=== PATIENT | female | born 1965 | race Caucasian/White ===

== ENCOUNTER → 2016-11-02 15:10 | Outpatient (CLI) | payer OTHER | END | disposition home or self-care (01) | LOC: D.MAMMO 10-03 11:45 | DX: Z12.31 Encounter for screening mammogram for malignant neoplasm of breast (principal) ==

== ENCOUNTER → 2017-08-14 13:33 | Outpatient (CLI) | payer OTHER | END | disposition home or self-care (01) | LOC: D.CT 13:33 | DX: R93.8 Abnormal findings on diagnostic imaging of other specified body structures (principal) ==

== ENCOUNTER → 2017-11-21 16:02 | Outpatient (CLI) | payer OTHER | END | disposition home or self-care (01) | LOC: D.MAMMO 10-09 11:45 | DX: Z12.31 Encounter for screening mammogram for malignant neoplasm of breast (principal) ==

== ENCOUNTER → 2017-11-23 13:45 | Outpatient (CLI) | payer OTHER | END | disposition home or self-care (01) | LOC: D.CT 13:45 | DX: R10.9 Unspecified abdominal pain (principal) ==

== ENCOUNTER → 2018-04-11 11:04 | Outpatient (CLI) | payer OTHER | END | disposition home or self-care (01) | LOC: D.MRI 11:00 | DX: M67.442 Ganglion, left hand (principal) ==

== ENCOUNTER 2018-04-27 10:56 | Day surgery (SDC) | payer OTHER ==
[~2018-04-27] VITALS: Ht 162.6 cm; Wt 74.8 kg
[2018-04-27 12:21] LABS: HEMATOCRIT 45.1 % (36.0-48.0); HEMOGLOBIN 14.8 g/dL (12-16); MCHC 32.8 g/dL (31.0-37.0); MCV 94.4 fL (80.0-100.0); MEAN PLATELET VOLUME 9.7 fL (7.4-10.4); RBC 4.78 10x6/uL (4.00-5.40); RDW 13.4 % (11.5-14.5); WBC 9.1 10x3/uL (4.8-10.8)
[2018-04-27 12:33] LABS: HCG SERUM NEGATIVE (NEGATIVE)
[2018-04-27 14:33] VITALS: BP 138/76; Ht 162.6 cm; Wt 74.8 kg
[2018-04-27] MEDS ORDERED: LISINOPRIL10 MG PO (14:46)
[2018-04-27] MEDS ORDERED: VITAMIN D250000 UNIT PO (14:47)
[2018-04-27] MEDS ORDERED: DURICEF500 MG PO (17:10)
--- NOTE | 2018-04-27 17:10 | NUR ---
REC'D FROM SURGERY. AWAKE. FAMILY AT BEDSIDE. DR BARRERA TALKED WITH PT AND FAMILY. HAND NUMB FROM LOCAL INJECTION.
[2018-04-27] MEDS ORDERED: ZOFRAN ODT4 MG/UDTAB PO (17:11)
[2018-04-27] MEDS ORDERED: ULTRAM50 MG PO (17:11)
--- NOTE | 2018-04-27 17:40 | NUR ---
SELAM ROJAS SERVED TO PT. ASKING WHEN SHE CAN GO HOME.
--- NOTE | 2018-04-27 18:00 | NUR ---
TOLERATED DIET. IV DC'D WITH CATHETER INTACT. WRITTEN AND VERBAL DC INST. GIVEN TO PT ALONG WITH RX. VERBALIZED UNDERSTANDING.
--- NOTE | 2018-04-27 18:10 | NUR ---
DC'D HOME WITH FAMILY VIA PRIVATE VEHICLE. TAKEN TO VEHICLE VIA WC. STABLE AT TIME OF DC.
--- NOTE | 2018-04-30 08:29 | OP ---
PATIENT NAME: SADIE KEENE MEDICAL RECORD: [id number] :63 LOCATION:[facility] ADMISSION DATE: SURGEON: POLLO BARRERA DO DATE OF OPERATION: 04/27/2018 PROCEDURE PERFORMED: Left middle finger ganglion excision and A1 nilay release. PREOPERATIVE DIAGNOSIS: Ganglion of the left middle finger flexor tendon sheath at the A1 nilay. POSTOPERATIVE DIAGNOSIS: Ganglion of the left middle finger flexor tendon sheath at the A1 nilay. INDICATION: Ms. Keene is a 52-year-old female who has had a small lump on the ulnar side of her middle finger at the MCP joint on the palmar side. The patient was tired of dealing with this. It hurt when she gripped something and she was tired of dealing with the pain. Imaging was done just to ensure there was indeed a cyst. I anticipated it being a ganglion cyst and that is what the MRI showed. It was coming off of the flexor tendon sheath right at the A1 nilay of the middle finger. I informed her we will excise the ganglion mass to open the sheath a little bit, and due to the fact it was right at the A1 nilay, to release it so it does not come back. She was okay with that. She was aware of risks and benefits including damage to nerves and vessels in the area, continued numbness, and recurrence of the ganglion. She signed the consent. SURGEON: Pollo Barrera DO DESCRIPTION OF PROCEDURE: The patient was taken to the operative suite and laid in the supine position. The left upper extremity was prepped and draped in sterile fashion. The patient was given TIVA. She was given a gram of Ancef preoperatively. Prior to the prepping and draping, the area of the cyst on the left middle finger palm was injected with 1% lidocaine, approximately 10 mL around the site. This was set up and then the left upper extremity was prepped and draped. Once this was done, time-out was performed and everyone was in agreement with correct side, site, and patient. The incision then began just over the cyst at the MCP joint of the left middle finger, just ulnar to it. A careful dissection was made down to the cyst itself and the cyst was ruptured. It was seen to come right off of the A1 nilay and the A1 nilay was released with a #15 blade scalpel under direct loupe visualization. The Dave retractors were used to retract everything out of the way, ensuring that the only thing released was the A1 nilay. Some of the ganglion material was removed from the wound as well and the tendon. The finger was flexed to ensure that the tendon glided smoothly and it did. The wound was then irrigated and closed with 4-0 nylon in a horizontal mattress fashion. Adaptic, 4 x 4's, Kerlix, and Coban were lightly wrapped on the wound. The patient was then taken to the outpatient for recovery due to the fact she was not put under anesthesia. COMPLICATIONS: None. BLOOD LOSS: Minimal. TRANSINT:[id number] Voice Confirmation ID: [id number] DOCUMENT ID: [id number] OPERATIVE REPORT [id number] SADIE KEENE MICHAEL D, DO at 0829 CC: [id number] DICTATION DATE: 04/27/18 172 REGISTERED RADIOGRAPHER: 04/28/18 0329 [facility] 04/27/18 [id number] [place] [address]
== END 2018-04-27 18:10 | disposition home or self-care (01) ==
LOC: D.OPS 10:56 → D.PAN 13:30 → D.OPS 13:30
PROVIDERS: Anesthesiology
DX: M67.442 Ganglion, left hand (principal); Z01.812 Encounter for preprocedural laboratory examination

== ENCOUNTER → 2018-11-22 09:00 | Outpatient (CLI) | payer OTHER ==
[2018-04-27 14:33] VITALS: BMI 28.4
[~2018-11-22 09:00] MED LIST: DURICEF500 MG PO; LISINOPRIL10 MG PO; ULTRAM50 MG PO; VITAMIN D250000 UNIT PO; ZOFRAN ODT4 MG/UDTAB PO
== END | disposition home or self-care (01) ==
LOC: D.MAMMO 09:00
PROVIDERS: ATTEND Internal Medicine Cardiovascular Disease
DX: Z12.31 Encounter for screening mammogram for malignant neoplasm of breast (principal)

== ENCOUNTER 2019-01-23 06:45 | Day surgery (SDC) | payer OTHER ==
[2019-01-21 12:48] LABS: BASOPHILS 0.3 % (0-2); EOSINOPHILS 1.3 % (0-7); HEMOGLOBIN 14.7 g/dL (12-16); IMMATURE GRANULOCYTES 0.2 % (0-5); LYMPHOCYTES 25.3 % (15-50); MCH 31.6 pg (26.0-34.0); MCHC 34.2 g/dL (31.0-37.0); MCV 92.5 fL (80.0-100.0); MEAN PLATELET VOLUME 9.2 fL (7.4-10.4); MONOCYTES 5.9 % (2-11); PLATELET COUNT 278 10x3/uL (130-400); RBC 4.65 10x6/uL (4.00-5.40); RDW 13.6 % (11.5-14.5); WBC 10.2 10x3/uL (4.8-10.8)
[~2019-01-23] VITALS: Ht 162.6 cm; Wt 77.1 kg
--- NOTE | ~2019-01-23 | OP ---
PATIENT NAME: SADIE ALEXANDRA MEDICAL RECORD: [id number] :63 LOCATION:[facility] ADMISSION DATE: SURGEON: HERBER BRYANT DO DATE OF OPERATION: 01/23/2019 PREOPERATIVE DIAGNOSIS: Left ovarian cyst. POSTOPERATIVE DIAGNOSIS: Left ovarian cyst. PRIMARY SURGEON: Herber Bryant DO ANESTHESIA: Jennifer Dowell CRNA PROCEDURE: Left salpingo-oophorectomy. FINDINGS: Normal appearing external genitalia, normal appearing vaginal vault, normal appearing cervix. Uterus retroverted and sounded to 6 cm. Normal appearing right ovary and fallopian tube. Left ovarian cyst. Normal-appearing uterus. SPECIMENS: Left ovary and fallopian tube. ESTIMATED BLOOD LOSS: 5 cc. IV FLUIDS: LR 100 cc. URINE OUTPUT: 250 cc clear urine. COMPLICATIONS: None. CONDITION: Stable. DESCRIPTION OF PROCEDURE: The risks, benefits, alternatives and indications of the procedure were discussed with the patient. She voiced understanding of the procedure and signed the consent. Due to age and postmenopausal status, decision was made to remove the left ovary instead of performing ovarian cystectomy. The patient was taken to the OR where general anesthesia was administered and found to be adequate. The patient was placed in the dorsal lithotomy position. She was prepped and draped in the normal sterile fashion. A speculum was placed in the posterior aspect of the vagina and a single tooth tenaculum was used to grasp the anterior lip of the cervix. The uterus was sounded to 6 cm and noted to be retroverted. The cervix was further dilated to accommodate a VCare uterine manipulator. The uterine manipulator was placed and the tenaculum was removed. All instruments other than the uterine manipulator were removed from the vagina. A red rubber catheter was used to drain the bladder. Attention was then turned to the abdomen and gloves were changed. The abdomen was elevated and a Veress needle was used to enter the abdomen with correct placement noted with saline drop test. Pneumoperitoneum was obtained to 15 mmHg. A 5-mm incision was created in the umbilicus and a 5-mm port was placed with the laparoscope for visualization. A 5-mm port was placed in the left lower quadrant, 2 cm superior and 2 cm medial to the ASIS under direct laparoscopic visualization. A 11-mm port was placed in the right lower quadrant under direct laparoscopic visualization in the same placement. The uterus was elevated out of the pelvis and the large left ovarian cyst was noted. The fallopian tube was grasped and the IP ligament was ligated with the Thunderbeat. OPERATIVE REPORT [id number] SADIE ALEXANDRA The ovary and fallopian tube was removed with the Thunderbeat with good hemostasis noted. The abdomen was irrigated with warm sterile saline and good hemostasis was again noted. The ovary and fallopian tube was placed in an Endobag and removed through the 11-mm port. A Mohan-Burt was then used to close the fascia at the 11-mm port with 0 Vicryl suture and good hemostasis. The right ovary and fallopian tube as well as uterus were noted to be normal. The pneumoperitoneum was released from the abdomen and all ports were removed from the abdomen. The port sites were closed with 3-0 Monocryl with good hemostasis and Dermabond. The uterine manipulator was removed from the vagina. A small amount of bleeding was noted from the tenaculum site, which was hemostatic with the application of silver nitrate. All instruments were removed from the vagina. All needle, lap, sponge, and instrument counts were correct times 2. The patient tolerated the procedure well. She was awakened and taken to the recovery room in stable condition. TRANSINT:[id number] Voice Confirmation ID: [id number] DOCUMENT ID: [id number] HERBER BRYANT DO CC: [id number] DICTATION DATE: 01/23/19 105 LEATHER TACKER: 01/23/19 1600 [facility] [place] 01/23/19 [facility] [address] [id number]
[~2019-01-23 06:45] MED LIST changes: +FEXOFENADINE HC60 MG PO
[2019-01-23 08:00] VITALS: BP 119/81; Ht 162.6 cm; Wt 77.1 kg
== END 2019-01-23 12:30 | disposition home or self-care (01) ==
LOC: D.OPS 06:45 → D.PAN 07:50 → D.OPS 08:30
PROVIDERS: ATTEND Student in an Organized Health Care Education/Training Program
DX: N83.202 Unspecified ovarian cyst, left side (principal)

== ENCOUNTER → 2019-11-25 13:00 | Outpatient (CLI) | payer OTHER ==
[2019-01-23 08:00] VITALS: BMI 29.2
== END | disposition home or self-care (01) ==
LOC: D.MAMMO 11-07 13:00
PROVIDERS: ATTEND Student in an Organized Health Care Education/Training Program
DX: Z12.31 Encounter for screening mammogram for malignant neoplasm of breast (principal)